=== PATIENT | male | born 1970 | race Caucasian/White ===

== ENCOUNTER 2020-07-11 09:00 | Emergency (ER) | payer OTHER, SELFPAY ==
--- NOTE | ~2020-07-11 | XR_ITS ---
EXAMINATION: [id number] DATE: 07/11/2020 09:46 INDICATION: Neck pain. TECHNIQUE: 5 views of cervical spine were obtained. COMPARISON: None. FINDINGS: Bone alignment is normal. Vertebral body heights are normal. There is moderately decreased disc height at C5-C6 and C6-C7. At C5-C6 and C6-C7, there is severe bilateral uncovertebral joint ost eoarthritis. The facet joints are unremarkable. There is mild central canal stenosis at C5-C6 and C6- C7. No prevertebral soft tissue swelling. IMPRESSION: 1. Moderate cervical spondylosis. Reviewed, dictated and finalized at location A.
[2020-07-11 09:10] VITALS: BP 157/94; PULSE 72; RESP 20; TEMP 36.8; O2SAT 100
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
== END 2020-07-11 10:05 | disposition home or self-care (01) ==
PROVIDERS: Emergency Provider Nurse Practitioner Family
DX: S16.1XXA Strain of muscle, fascia and tendon at neck level, initial encounter (principal); X50.9XXA Other and unspecified overexertion or strenuous movements or postures, initial encounter; Y99.0 Civilian activity done for income or pay; E78.00 Pure hypercholesterolemia, unspecified
CPT/HCPCS: 72040; 99203; G0463

== ENCOUNTER 2024-03-09 08:06 | Emergency (ER) | payer OTHER, SELFPAY ==
--- NOTE | ~2024-03-09 | CT_ITS ---
CT diagnostic chest wo con Ordering provider: Himanshu Morris MD History: 53 years Male with . FALL . Comparison: None. Technique: CT chest without IV contrast. Radiation reduction technique utilized The dose-length product was 99.14 mGy-cm. FINDINGS: VISUALIZED THORACIC INLET: Normal. MEDIASTINUM: Aorta/coronary arteries: Mild atheromatous disease. Heart/other: The heart is not enlarged. Lymph nodes: No mediastinal or hilar adenopathy. LUNGS: No pulmonary nodules or masses. No infiltrates or effusions. No pneumothorax. Dependent atelec tatic changes. VISUALIZED UPPER ABDOMEN: Benign calcifications in the liver. Atrophic pancreas. Otherwise, the visua lized upper abdomen is normal. MUSCULOSKELETAL: Soft tissues: The superficial soft tissues are normal. Bones: Normal spine. IMPRESSION: 1. No acute cardiopulmonary pathology. 2. No definite rib fractures seen. Reviewed, dictated and finalized at location A. ONE PROCESSOR
--- NOTE | ~2024-03-09 | CT_ITS ---
EXAMINATION: CT thoracic spine wo con DATE: 03/09/2024 08:51 INDICATION: Back injury. Fall. TECHNIQUE: Computed tomography (CT) of the thoracic spine was performed without intravenous contrast. Automated exposure control and iterative reconstruction technique were employed. The dose-length pro duct was 899.14 mGy-cm. COMPARISON: None FINDINGS: There is 10 degrees levoscoliosis of upper thoracic spine. Vertebral body heights are duran l. There is moderately decreased disc height at T4-T5, T6-T7, and T9-T10. There is mildly decreased d isc height at the other levels from T2-T3 through T10-T11. There is multilevel mild facet joint osteo arthritis. There is no neural foraminal stenosis. There is mild central canal stenosis at T9-T10. IMPRESSION: 1. No fracture. 2. Moderate thoracic spondylosis. 3. Upper thoracic levoscoliosis. Reviewed, dictated and finalized at location A. ATTENDANT
--- NOTE | ~2024-03-09 | CT_ITS ---
EXAMINATION: CT cervical spine wo con DATE: 03/09/2024 08:51 INDICATION: Posterior neck tenderness post fall with head injury TECHNIQUE: Computed tomography (CT) of the cervical spine was performed without intravenous contrast. Automated exposure control and iterative reconstruction technique were employed. The dose-length pro duct was 681.00 mGy-cm. COMPARISON: Radiograph dated FINDINGS: Alignment is normal. Severe osteoarthritis at the atlantoaxial articulation. Vertebral body heights a re normal. No fracture. Severe uncovertebral osteoarthritis with moderate disc height loss at C5-C6 a nd with mild disc height loss at C6-C7. Additional mild to moderate uncovertebral osteoarthritis with relatively preserved disc space and the more cephalad cervical spine. Posterior disc osteophyte comp lexes result in mild central canal stenosis at C5-C6 and C6-C7. Mild disc bulges resulting in minimal central canal stenosis at C3-C4 and C4-C5. Multilevel mild cervical facet osteoarthritis. There is m ild neural foraminal stenosis on the left at C3-C4 and C4-C5 and bilaterally at C5-C6 and C6-C7. Smal l amount of atherosclerotic desiccation at the bilateral carotid bulbs. Visualized cervical soft tiss ues are otherwise unremarkable. IMPRESSION: 1. . Cervical spondylosis. No acute osseous abnormality. Reviewed, dictated and finalized at location B. OPERATOR
--- NOTE | ~2024-03-09 | CT_ITS ---
EXAMINATION: CT brain wo con DATE: 03/09/2024 08:51 INDICATION: Fall with head TECHNIQUE: Computed tomography (CT) of the head was performed without intravenous contrast. Sagittal and coronal reconstructions were performed. The mA was adjusted according to patient size. Iterative reconstruction technique was employed. The dose-length product was 681.00 mGy-cm. COMPARISON: None FINDINGS: No fracture. No acute intracranial hemorrhage, acute infarction or abnormal extra axial fluid collect ion. Ventricles are normal and symmetric. No mass/mass effect. The orbits and mastoid air cells are normal. Sarita bullosa of the left middle turbinate. Moderate mucosal thickening likely with mucous r etention cysts in the paranasal sinuses. IMPRESSION: 1. No fracture or acute intracranial process Reviewed, dictated and finalized at location B. GER STAFFING
[2024-03-09 07:50] VITALS: BP 157/92; PULSE 74; RESP 16; O2SAT 100
--- NOTE | 2024-03-09 08:24 | ED.FALL ---
HPI - Fall General Chief Complaint: Fall Stated Complaint: fall Source: patient History of Present Illness HPI Narrative: SLIPPED ON ICE, LANDED BACKWARD, COMPLAINING OF PAIN AT THE BACK OF THE HEAD, UPPER BACK BILATERALLY, NECK PAIN NO LOSS OF CONSCIOUSNESS HISTORY OF HYPERLIPIDEMIA NO BLOOD THINNER Related Data Home Medications ?Medication ?Instructions ?Recorded ?Confirmed ?Last Taken ?Type atorvastatin 20 mg tablet 20 mg PO DAILY 07/11/20 07/11/20 Unknown History Allergies Allergy/AdvReac Type Severity Reaction Status Date / Time No Known Allergies Allergy Verified 03/09/24 08:07 Review of Systems Review of Systems: All systems reviewed & are unremarkable except as noted in HPI and below Exam Narrative: GENERAL APPEARANCE: WELL-DEVELOPED, WELL-NOURISHED SKIN: NORMAL COLOR HEAD: NORMOCEPHALIC, OCCIPITAL TENDERNESS EYES: CLEAR CONJUNCTIVA ENT: OROPHARYNX NORMAL, EARS NORMAL, NOSE NORMAL NECK: C-COLLAR ON, DIFFUSE TENDERNESS POSTERIORLY CHEST AND RESPIRATORY: AIRWAY PATENT, NO RESPIRATORY DISTRESS, NO ACCESSORY MUSCLE USE HEART: REGULAR RATE/RHYTHM ABDOMEN: SOFT, NONTENDER, NO ORGANOMEGALY, QUIET BOWEL SOUNDS VASCULAR: NORMAL PERIPHERAL PULSES, NORMAL CAPILLARY REFILL. MUSCULOSKELETAL: DIFFUSE TENDERNESS THORACIC SPINE AND UPPER BACK BILATERALLY, NO BRUISES, NO SWELLING OR RASH NEUROLOGIC: ALERT AND ORIENTED ?3, COMPLIANCE COORDINATOR IS NORMAL TESTED, NO GROSS MOTOR DEFICIT Course Vital Signs Vital signs: Vital Signs Pulse Rate 74 03/09/24 07:50 Respiratory Rate 16 03/09/24 07:50 Blood Pressure 157/92 H 03/09/24 07:50 Pulse Oximetry 100 03/09/24 07:50 Oxygen Delivery Room Air 03/09/24 07:50 Pulse Rate 74 03/09/24 07:50 Respiratory Rate 16 03/09/24 07:50 Blood Pressure 157/92 H 03/09/24 07:50 Pulse Oximetry 100 03/09/24 07:50 Oxygen Delivery Room Air 03/09/24 07:50 MDM - Fall MDM Narrative Medical decision making narrative: PATIENT FELL ON ICE VITAL SIGNS ARE STABLE PHYSICAL EXAMINATION CONSISTENT WITH TENDERNESS OCCIPITAL AREA, POSTERIOR NECK AND THORACIC SPINE CT HEAD, CERVICAL SPINE AND THORACIC SPINE AND CHEST WITHOUT CONTRAST SHOWED NO ACUTE ABNORMALITIES. DIAGNOSIS CONCUSSION, DISCHARGED HOME ON ZOFRAN AND IBUPROFEN NEEDED, 2 DAYS EXCUSE OF WORK THE PT WAS DISCHARGED TO HOME.THE PT,S CONDITION UPON DISCHARGE WAS FAIR,EDUCATION WAS PROVIDED TO THE PT IN REFERENCE TO THE FINAL IMPRESSION,DISCHARGE STUDY RESULTS,TREATMENT,PROGNOSIS AND NEED FOR FOLLOW UP . Differential Diagnosis Differential diagnosis: Likely compression fracture, concussion without loss of consciousness and other Imaging Data Radiologist's impression: Impressions Head CT 03/09/24 08:54 IMPRESSION: 1. No fracture or acute intracranial process Cervical Spine CT 03/09/24 08:59 IMPRESSION: 1. . Cervical spondylosis. No acute osseous abnormality. Chest CT 03/09/24 08:59 IMPRESSION: 1. No acute cardiopulmonary pathology. 2. No definite rib fractures seen. Thoracic Spine CT 03/09/24 09:04 IMPRESSION: 1. No fracture. 2. Moderate thoracic spondylosis. 3. Upper thoracic levoscoliosis. Critical Care Time Critical Care Time Critical Care Time: No Discharge Plan Discharge Clinical Impression: Fall, Headache, Back pain, Acute neck pain Patient Disposition: Home, Self-Care Condition: Improved Instructions: Concussion (ED), Back Pain (ED) Additional Instructions: RETURN IF SYMPTOMS ARE WORSENING , CALL YOUR FAMILY PHYSICIAN FOR APPOINTMENT, TAKE TYLENOL, IBUPROFEN NEEDED FOR ACHES AND PAIN, CONTINUE HOME MEDICATIONS. Patient Language: Sami Prescriptions: New ondansetron 4 mg tablet,disintegrating 4 mg PO Q6H PRN (Reason: nausea and vomiting) Qty: 10 0RF No Action atorvastatin 20 mg tablet 20 mg PO DAILY methylprednisolone [Medrol (Manas)] 4 mg tablets,dose pack See Rx Instructions .ROUTE .COMPLEX Qty: 21 0RF Rx Instructions: orally per package directions cyclobenzaprine 5 mg tablet 5 mg PO HS PRN (Reason: muscle spasm) Qty: 20 0RF ibuprofen 800 mg tablet 800 mg PO TID PRN (Reason: pain) Qty: 30 0RF Follow-up/Referrals: Jae Hogan MD [Physician] - 03/10/24 UNKNOWN,DOCTOR [Primary Care Provider] - Stand Alone Forms: Work/School Release IP
[2024-03-09] MEDS: ONDANSETRON INJ 4 MG/2 ML VIAL IV PUSH (09:28)
[2024-03-09] MEDS: HYDROmorphone HCL INJ (*CRX) 1 MG/ML SYR 0.5 MG IV PUSH (09:28)
[2024-03-09 09:34] VITALS: BP 154/93; PULSE 73; RESP 13; O2SAT 100
== END 2024-03-09 09:57 | disposition home or self-care (01) ==
PROVIDERS: Emergency Provider Emergency Medicine
DX: R51.9 Headache, unspecified (principal); M54.2 Cervicalgia; M54.9 Dorsalgia, unspecified; E78.5 Hyperlipidemia, unspecified; M47.812 Spondylosis without myelopathy or radiculopathy, cervical region; M47.814 Spondylosis without myelopathy or radiculopathy, thoracic region; W00.0XXA Fall on same level due to ice and snow, initial encounter
CPT/HCPCS: 70450; 71250; 72125; 72128; 96374; 96375; 99284; J1171; J2405